=== PATIENT | male | born 1990 | race Caucasian/White ===

== ENCOUNTER 2017-09-21 13:57 | Emergency (ER) | payer SELFPAY ==
[2017-09-21] MEDS ORDERED: Adacel (T-DAP) 0.5 ML VIAL ONE (16:46)
[2017-09-21] MEDS ORDERED: Bacitracin Zinc 1 Packet ONE (17:00)
== END 2017-09-21 17:38 | disposition home or self-care (01) ==
LOC: ERS 13:57
DX: S51.812A Laceration without foreign body of left forearm, initial encounter (principal); F17.210 Nicotine dependence, cigarettes, uncomplicated; Z23 Encounter for immunization; W26.0XXA Contact with knife, initial encounter
CPT/HCPCS: 12001; 90471; 90715